=== PATIENT | female | born 1980 | race Caucasian/White ===

== ENCOUNTER 2019-11-04 08:13 | Emergency (ER) | payer BC, MEDICAID ==
[~2019-11-04] VITALS: Ht 160 cm; Wt 83.5 kg
[2019-11-04 08:30] VITALS: Ht 160 cm; Wt 83.5 kg
[2019-11-04 09:10] LABS: BASOPHIL % 0.5 % (0-2); PLATELET COUNT 293 x10^3mcL (130-400); RED CELL DISTRIBUTION WIDTH 14.5 % (11.5-14.5)
[2019-11-04 10:17] VITALS: BP 155/86
== END 2019-11-04 10:17 | disposition home or self-care (01) ==
LOC: ED 08:13
PROVIDERS: Emergency Medicine
DX: N83.202 Unspecified ovarian cyst, left side (principal); J45.909 Unspecified asthma, uncomplicated
CPT/HCPCS: 36415; J1885

== ENCOUNTER 2019-11-11 19:06 | Emergency (ER) | payer BC, MEDICAID ==
[~2019-11-11] VITALS: Ht 160 cm; Wt 82.6 kg
[2019-11-11 19:12] VITALS: Ht 160 cm; Wt 82.6 kg
[2019-11-11 20:08] VITALS: BP 158/83
== END 2019-11-11 20:08 | disposition home or self-care (01) ==
LOC: ED 19:06
DX: N76.4 Abscess of vulva (principal); J45.909 Unspecified asthma, uncomplicated; I10 Essential (primary) hypertension